=== PATIENT | female | born 1980 | race Hispanic/Latino ===

== ENCOUNTER 2023-05-04 23:25 | Emergency (ER) | payer BC, OTHER ==
[2023-05-04] MEDS ORDERED: Ibuprofen 600 MG TAB ONE (23:46)
== END 2023-05-05 00:57 | disposition home or self-care (01) ==
LOC: MADERS 23:25
DX: S62.322A Displaced fracture of shaft of third metacarpal bone, right hand, initial encounter for closed fracture (principal); S62.324A Displaced fracture of shaft of fourth metacarpal bone, right hand, initial encounter for closed fracture; V59.3XXA Occupant (driver) (passenger) of pick-up truck or van injured in unspecified nontraffic accident, initial encounter
CPT/HCPCS: 26605

== ENCOUNTER 2024-10-02 17:56 | Emergency (ER) | payer BC, SELFPAY ==
[2024-10-02] MEDS ORDERED: Ibuprofen 600 MG TAB ONE (18:31)
== END 2024-10-02 18:56 | disposition home or self-care (01) ==
LOC: MADERS 17:56
DX: S93.402A Sprain of unspecified ligament of left ankle, initial encounter (principal); X50.1XXA Overexertion from prolonged static or awkward postures, initial encounter
CPT/HCPCS: 99283